=== PATIENT | female | born 1975 | race Caucasian/White ===

== ENCOUNTER 2024-08-22 14:59 | Emergency (ER) | payer OTHER, SELFPAY ==
--- OUTSIDE RECORDS SUMMARY | 2024-08-22 15:01 | XMS_ITS | Clinical Summary ---
Author Organization [facility] Address [address] [place] [address] Care Team Providers Care Dna Sequencing Associate Name Role Phone Prachi Dunn MD Primary Care Provider [phone] Ethan Ortiz RN Unavailable Elzbieta Nicole RD Unavailable Unavailab le Allergies Active Allergy Reactions Criticality Noted Date Comments Meperidine Other - Describe In Comment Field shaking Medications CPAPIndication s:RAIMUNDO (obstructive sleep apnea) CPAP machine for home use at pressure 5-20 cm H2O, nasal mask x1/3month with nasal cushion x2/mo 1 Each 11 2 Active propranoloL (INDERAL) 10 mg tabletIndicati ons:Anxiety Take 1 Tablet (10 mg) by mouth two times daily. 180 Tablet 4 4 Active eszopiclone (LUNESTA) 2 mg tabletIndicati ons:Insomnia, idiopathic Take 1 Tablet (2 mg) by mouth at bedtime. 30 Tablet 2 4 Active buPROPion (WELLBUTRIN SR) 200 mg sustained-rele ase tabletIndicati ons:Depression , recurrent Take 1 Tablet (200 mg) by mouth two times daily. 180 Tablet 4 4 Active ALPRAZolam (XANAX) 0.5 mg tabletIndicati ons:Anxiety TAKE 1-1.5 TABLETS (0.5-0.75 MG) BY MOUTH AT BEDTIME IF NEEDED FOR ANXIETY. 90 Tablet 5 Active tirzepatide (MOUNJARO) 12.5 mg/0.5 mL penIndications :BMI 33.0-33.9,adul t,RAIMUNDO (obstructive sleep apnea) Inject 12.5 mg subcutaneous once weekly. 6 mL 3 5 Active tamsulosin 0.4 mg capsuleIndicat ions:Nephrolit hiasis Take 1 Capsule (0.4 mg) by mouth once daily after a meal. 30 Capsule 5 Active tamsulosin 0.4 mg capsuleIndicat ions:Nephrolit hiasis Take 1 Capsule (0.4 mg) by mouth once daily after a meal. 30 Capsule 1 5 025 Discontin ued(*Avai lability/ Formulary change/Co st of medicatio n) Active Problems Patient Care Coordination No te Formatting of this note migh t be different from the original. 2021 RD consult order entered 10/12/21. 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 Family history of hereditary nonpolyposis colorectal cancer (HNPCC) 01/21/2019 Major depressive disorder, recurrent episode, un specified 03/08/2007 Chondromalacia of patella 02/17/2006 Generalized anxiety disorder Calculus of kidney Overview (09/22/2005): age 16 Resolved Problems Problem Noted Date Diagnosed Date Resolved Date Back pain 09/27/2012 01/21/2019 Encounters Date Type Department Care Team Description 08/22/2024 Nurse Triage [address] [address] Prachi Dunn MD Back Pain 07/22/2024 Refill [facility] [address] [place] [address] Rush Grant MD Refill Request 07/08/2024 4:10 PM EMERGENCY VEHICLE TECHNICIAN Telemedicine [address] [address] Prachi Dunn MD Medication Management (tirzepatide) 07/08/2024 Travel 07/03/[address] [address] Prachi Dunn MD Refill Request (Alprazolam) 06/19/2024 11:15 AM EMERGENCY VEHICLE TECHNICIAN Office Visit [facility] [address] [place] [address] Rush Grant MD Hospital F/U (Kidney Stone- no active pain currently ) 06/19/2024 Travel 06/18/2024 Telephone [facility] [address] [place] [address] Rush Grant MD Questions from Last 3 Months Immunizations Immunization Administration Dates Next Due COVID-19 vaccine (Pfizer-Bio NTech 30mcg/0.3mL) 12YO+ BIVALENT PF, MDV 03/29/2022 COVID-19 vaccine (Pfizer-Bio NTech 30mcg/0.3mL) PF, MDV 03/22/2021 DTaP 10/19/2006,07/15/1981 Influenza Virus, Unspecified 03/29/2022,02/28/20 14 Influenza, IIV4 03/29/2022,,07/10/2018,2016,04/27/2016,05/13/2015,02/27/2014 Influenza,CCIIV4 PRESERV FREE 02/12/2020 Tdap 05/20/2014,10/19/2006 Family History Medical History Relation Name Comments Heart Disease Father at 39, fi rst [place] at 36 Hypertension Father Obesity Father Hypertension Maternal Grandfather Lung cancer Maternal Grandmother Anxiety disorder Mother Cancer-colon Mother Depression Mother Other Mother endometriosis Obesity Sister Other Sister morbid obesity Uterine cancer Sister nonpolyposis colon cancer genetic mutation Relation Name Status Comments Father Maternal Grandfather Maternal Grandmother Mother Sister Social History Tobacco Use Types Packs/Day Years Used Date Smoking Tobacco: Former Cigarettes 0 06/05/1996 - 06/05/2006 Smokeless Tobacco: Never Tobacco Cessation:Counseling Given: Not Answered Alcohol Use Standard Drinks/Week Comments Not Currently 0 (1 standard drink = 0.6 oz pur e alcohol) social 07/24 PHQ-2 Answer Date Recorded PHQ-2 TOTAL SCORE 0 04/02/2024 Social Connections Answer Date Recorded Do you often feel lonely or isolated from those around you? 0 06/19/2024 Financial Resource Strain Answer Date R ecorded Difficulty of Paying Living Expenses 3 06/19/2024 Difficulty of Paying Living Expenses Not on file 06/19/2024 Food Insecurity Answer Date Recorded Do you worry your food will run out before you are able to buy more? 1 06/19/2024 Transportation Needs Answer Date Record ed Does lack of transportation keep you from medica l appointments? 1 06/19/2024 Does lack of transportation keep you from work, meetings or getting things that you need? 1 06/19/2024 Housing Stability Answer Date Recorded What is your housing situation today? 1 06/19/2024 Utilities Answer Date Recorded Do you have trouble paying f or utilities (for example, heat, electricity, water, phone)? 1 06/19/2024 Comments No Sex and Gender Information Value Date Recorded Sex Assigned at Female 03/25/2021 9:12 PM CDT Legal Sex Female 6:09 AM EMERGENCY VEHICLE TECHNICIAN Gender Identity Female 03/25/2021 9:12 PM CDT Sexual Orientation Straight 03/25/2021 9: 12 PM CDT Occupation Industry Job Start Date Job End Date [employer] Not on file Not on file Not on file Obstetrics History Para Term AB IAB SAB Ectopic Multiple Livin g Live Births 1 Date Outcome GA Total Labor Labor/2nd/3rd Weight Sex Type Anes PTL Le A1 A5 Name Clin Last Filed Vital Signs Vital Sign Reading Time Taken Comments Blood Pressure 128/89 06/19/2024 11:15 AM EMERGENCY VEHICLE TECHNICIAN Pulse 71 06/19/2024 11:15 AM EMERGENCY VEHICLE TECHNICIAN Temperature 37.3 C (99.2 F) 11/23/2020 11:57 AM CDT Respiratory Rate 18 11/23/2020 11:57 AM CDT Oxygen Saturation 99% 06/19/2024 11:15 AM EMERGENCY VEHICLE TECHNICIAN Inhaled Oxygen Concentration - - Weight 90.3 kg (199 lb 1.6 oz) 06/19/2024 11:15 AM EMERGENCY VEHICLE TECHNICIAN Height 165.1 cm (5' 5) 04/02/2024 4:27 PM CDT Body Mass Index 33.13 04/02/2024 4:27 PM CDT Plan of Treatment Health Maintenance Due Date Last Done Comments Hepatitis C screening for age 18-79 12/07/1993 COVID-19 vaccine series ( season) 2024 03/29/2022, 03/22/2021, 09/17/2020, Additional history exists Influenza Vaccine (#1) 2024 2, 03/29/2022, 03/22/2021, Additional history exists Tetanus booster 05/20/2024 05/20/2014, 10/19/2006 Colonoscopy through age 75 06/16/2024 06/16/2022, BMI (ht and wt on same day) for age 18+ 04/02/2025 04/02/2024, 02/10/2022, 12/29/2021, Additional history exists Depression screening for age 12+ 04/02/2025 04/02/2024, 03/03/2024, 12/27/2022, Additional history exists Lipids for age 45-75 09/29/2026 09/29/2021, 07/10/2018, 10/19/2006 Pap test for age 21-65 05/10/2027 2 (Verified in Care Everywhere or Patient Record), 01/07/2017 (Completed outside of [facility]), 12/03/2012 (Completed outside of [facility]), Additional history exists HIV for age 15-65 Completed 01/02/2009, 10/19/2006 Tdap Completed 05/20/2014, 10/19/2006 Pneumococcal series for age 6-49 Aged Out No longer eligible based on patient's age to complete this topic Procedures Procedure Name Priority Date/Time Associated Diagnosis Comments SCAN-COLONOSCOPY 06/16/2022 11:0 0 AM EMERGENCY VEHICLE TECHNICIAN LIPID PANEL W REFLEX MEASURED LDL Routine 09/29/2021 8:32 AM CDT Obesity, Class II, BMI 35-39.9 RAPID HIV SCREEN Routine 01/02/2009 2:37 PM CDT Hx-Expos Hzrd Body Fluid HOME THEATER INSTALLER THIN PREP PAP SCREEN IMAGED Routine 01/02/2009 2:37 PM CDT Screening for Malignant Neoplasm of the Cervix from Last 3 Months or Most Recently Relevant to Health Maintenance Results * SCAN-COLONOSCOPY (06/16/2022 11:00 AM EMERGENCY VEHICLE TECHNICIAN) Narrative Procedure Note Jessee Stanley MD - 06/16/2022 9:14 AM CST [facility] [address] [place] [address], [address], [place] [address] Patient Name: Madhavi Jackson Gender: Female Exam Date: 06/16/2022 Visit Number: [id number] Age: 46 Years Date of : 1975 Attending MD: Jessee Stanley MD Medical Record#: [id number] Procedure: Colonoscopy Indications: Family history of colon cancer in patient's multiplerelatives. Age diagnosed: 50-59. Referring MD: Prachi Dunn MD Primary MD: Prachi Dnun MD Medications: Admitting Medications: 0.9% Normal Saline at [facility] Intra Procedure Medications: Patient received monitored anesthesia care. Complications: No immediate complications Procedure: An examination of the heart and lungs was performed and found to be withinacceptable limits. . The patient was therefore deemed a reasonablecandidate for endoscopy and sedation. The risks and benefits of the procedure were explained to the patient.After obtaining informed consent, the patient received monitoredanesthesia care and I passed the scope without difficulty via the rectum to the cecum. The appendiceal orificeand ic valve were identified. The scope was retroflexed during theexamination The quality of the prep was good (Vinh/Gat Split). This was a complete examination throughout the entire colon. Findings: Polyp location: cecum. Quantity: 1. Size: 3 mm. Polyp shape: sessile. Maneuver: polypectomy was performed with a cold biopsy forceps. Removal: complete. Retrieval: complete. Bleeding: none. Impression: Benign colon polyp Preliminary Plan: Repeat colonoscopy in 2 years Pathology Results: A: COLON, CECUM, POLYP: 1. Tubular adenoma 2. Negative for high grade dysplasia 3. Per the colonoscopy report: a. Polyp size: 3 mm b. Resection: Complete c. Retrieval: Complete MICROSCOPIC A: Performed Electronically signed by: Juan Argueta MD Interpreted at [facility], [address] [place] [address] Orders Instruction(s)/Education: Instruction/Education Timeframe Assessment Colon Cancer Prevention K63.5 Colon Polyps K63.5 Final Plan: Repeat colonoscopy in 2 years. We will attempt to contact you at appropriate intervals via U.S. mail. Wemay not be able to find you or contact you at that time, therefore youshould know that the responsibility for following our recommendation restswith you. If you don't hear from us at the time your procedure is due,please contact our office to schedule an appointment. If your contactinformation should change, please contact our office so that we can updateyour record. _Electronically signed by: Jessee Stanley MD 06/16/2022 cc: Prachi Dunn MD cc: Prachi Dunn MD us Jessee Stanley MD OTHER Final Re sult * (ABNORMAL) LIPID PANEL W REFLEX MEASURED LDL (09/29/2021 8:32 AM CDT) CHOLESTEROL,TOTAL 285(H) 100 - 199 mg/dL 09/29/2021 4:31 PM CDT [facility] TRIGLYCERIDES 116 <150 mg/dL 09/29/2021 4:31 PM CDT [facility] HDL CHOLESTEROL 76 >40 mg/dL 4:31 PM CDT [facility] NON-HDL CHOLESTEROL 209(H) <145 mg/dl 09/29/2021 4:31 PM CDT [facility] CHOL/HDL RATIO 3.75 <4.50 09/29/2021 4:31 PM CDT [facility] LDL CHOLESTEROL 186(H) <=130 mg/dL 09/29/2021 4:31 PM CDT [facility] VLDL CHOLESTEROL 23 <=30 mg/dL 09/29/2021 4:31 PM CDT [facility] PROVIDER ORDERED STATUS RANDOM 09/29/2021 4:31 PM CDT [facility] Blood BLOOD SPECIMEN / Unknown Venipuncture / Unknown 09/29/2021 8:32 AM CDT 09/29/2021 8:32 AM CDT Yamile Saez NP CHEMISTRY Final Result [facility] [address] [place] [address], [place] * HOME THEATER INSTALLER THIN PREP PAP SCREEN IMAGED (01/02/2009 2:37 PM CDT) CYTOLOGY CYTOPATHOLOGY REPORT [facility] Status: Final Status [id number] CLINICAL INFORMATION Last Date of LMP :12/24/2008 Last Pap Date :12/2007 Last Pap Result :NIL ABN [place]/Bx Past 5 YRS :None Hormone Usage :BCP/OCP/Patch/Rin g Menstrual Status :Regular Periods [place]/Bx done today :No Additional :None given Information HPV Request :HPV if ASCUS SPECIMEN SOURCE :Cervical/vaginal ThinPrep Vial, screening SPECIMEN ADEQUACY :Satisfactory for evaluation Endocervical component present. INTERPRETATION/RES ULT Negative for intraepithelial lesion or malignancy (NIL) Cytology 1st Screener :had Cytology 2nd Screener :wst Signed by :wst This specimen was screened by the FDA approved ThinPrep Imaging System and manually reviewed. NOTE: The Pap test is a screening technique, not a diagnostic procedure. It is used primarily to screen for squamous cancers and precursor lesions. Published studies have shown that it is subject to both false negative and false positive results. The pap test should not be used as the sole means to diagnose or exclude pre-malignant and malignant lesions. COLLECTED:01/02/09 ACCESSIONED: 01/05/09 SIGNED: 01/13/09 [facility] PAP [place] CODE NIL [facility] Cervical/Vaginal (Cervical/Vagina l) 01/02/2009 2:37 PM CDT 01/02/2009 2:26 PM CDT us Esperanza Olvera MD PATHOLOGY/CYTOLOGY Final Result [facility] [place]NAL ZIP [id number] [address] * RAPID HIV SCREEN (01/02/2009 2:37 PM CDT) RAPID HIV SCREEN Non-reacti ve [facility] Blood specimen (specimen) BLOOD SPECIMEN / Unknown 01/02/2009 2:37 PM CDT 01/02/2009 2:26 PM CDT us Esperanza Olvera MD CHEMISTRY Final Result Performing Organization Address City/[facility]/ZIP Co de Phone Number [facility] [address] [facility] [address], [address] [place] [address] from Last 3 Months or Most Recently Relevant to Health Maintenance Insurance [facility] SHARED [facility] Care Teams Dna Sequencing Associate Relationship Specialty Start Date End Date Prachi Dunn MD [address] [address] PCP - General Internal Medicine 05/13/15 Ethan Ortiz, RN [address] [place], [place] [address] Registered Nurse Registered Nurse 09/28/[address] [facility] [place] [address] Registered Dietitian Wire Roller 09/28/21
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
--- OUTSIDE RECORDS SUMMARY | 2024-08-22 15:01 | XMS_ITS | Clinical Summary ---
Author Organization [facility] Address [address] [place] [address] Care Team Providers Care Leadership Coach Name Role Phone Prachi Dunn MD Primary Care Provider [phone] Allergies Active Allergy Reactions Criticality Noted Date Comments Meperidine 04/05/2021 shaking Medications buPROPion (WELLBUTRIN XL) 150 MG 24 hr tablet Take 300 mg by mouth every morning (150MG X 2 = 300MG) Active ALPRAZolam (XANAX) 0.5 MG tablet Take 0.25-0.5 mg by mouth 3 times daily as needed for anxiety Active traZODone (DESYREL) 50 MG tablet Take 100 mg by mouth At Bedtime (50MG X 2 = 100MG) Active gabapentin (NEURONTIN) 300 MG capsuleIndicati ons:S/P mastectomy, bilateral Take 1 capsule (300 mg) by mouth 3 times daily 90 capsule 04/15/2021 Active Active Problems Problem Noted Date Diagnosed Date Ductal carcinoma in situ (DCIS) of right breast 04/05/2021 08/23/2014 delivery, without m ention of indication, delivered, with or without mention of antepartum condition 08/23/2014 Overview (11/17/2020): Replacement Utility updated for latest IMO load Immunizations Name Administration Dates Next Due Flu, Unspecified 02/27/2014 TDAP (Adacel,Boostrix) 05/20/2014 Family History Medical History Relation Comments Diabetes Father Heart Disease Father Cancer Mother Relation Status Comments Father Mother Social History Tobacco Use Types Packs/Day Years Used Date Smoking Tobacco: Former Cigarettes Smokeless Tobacco: Never Alcohol Use Standard Drinks/Week Comments Yes 1 (1 standard drink = 0.6 oz pur e alcohol) occasionally Adolescent Education Answer Date Record ed Getting School Help Needed Not on file 02/24 Comments No Sex and Gender Information Value Date Recorded Sex Assigned at Not on file Legal Sex Female 8:47 AM CDT Gender Identity Female 04/19/2021 3:27 PM [employer] Sexual Orientation Straight 04/19/2021 3: 27 PM [employer] CHECK[employer] Last Filed Vital Signs Vital Sign Reading Time Taken Comments Blood Pressure 101/72 04/06/2021 11:14 AM CDT Pulse 82 04/06/2021 11:14 AM CDT Temperature 36.9 C (98.4 F) 04/06/2021 11:14 AM CDT Respiratory Rate 18 04/06/2021 2:39 PM CDT Oxygen Saturation 96% 04/06/2021 11:14 AM CDT Inhaled Oxygen Concentration - - Weight 95.4 kg (210 lb 5.1 oz) 04/06/2021 3:43 A M CDT Height 165.1 cm (5' 5) 04/06/2021 3:43 AM CDT Body Mass Index 35 04/06/2021 3:43 AM CDT Plan of Treatment Health Maintenance Due Date Last Done Comments ADVANCE CARE PLANNING 1975 ANNUAL REVIEW OF HM ORDERS 1975 CT COLONOGRAPHY 1975 DIABETES SCREENING 1975 FIT 1975 FLEX SIG 1975 sDNA (Cologuard) 1975 YEARLY PREVENTIVE VISIT 12/07/1978 HEPATITIS C SCREENING 12/07/1993 HEPATITIS B IMMUNIZATION (1 of 3 - 19+ 3-dose series) 12/07/1994 PAP 01/03/2012 01/02/2009 LIPID 2015 COVID-19 Vaccine ( - 2023- season) 2024 03/29/2022, 03/22/2021, 09/17/2020, Additional history exists INFLUENZA VACCINE (#1) 2024 2, 03/22/2021, 02/12/2020, Additional history exists DTAP/TDAP/TD IMMUNIZATION (5 - Td or Tdap) 05/20/2024 05/20/2014, 10/19/2006, 10/19/2006, Additional history exists PHQ-2 (once per calendar year) 2024 ZOSTER IMMUNIZATION (1 of 2) 12/07/2025 COLONOSCOPY 06/16/2032 06/16/2022 COLORECTAL CANCER SCREENING 06/16/2032 HIV SCREENING Completed 01/02/2009 MAMMO SCREENING Discontinued 02/24/2021, 02/04, 02/22/2021, Additional history exists HPV IMMUNIZATION Aged Out No longer e ligible based on patient's age to complete this topic MENINGITIS IMMUNIZATION Aged Out No l onger eligible based on patient's age to complete this topic Pneumococcal Vaccine: Pediatrics (0 to 5 Years) and At-Risk Patients (6 to 49 Years) Aged Out No longer eligible based on patient's age to complete this topic Medical Devices Implanted Type Area Car Repair Supervisor Device Identifier Shelf Expiration Date Model / Serial / Lot Tissue Kier Hand Natrelle 133s Smooth 650ml [id number] - [id number] Implanted:Qt y: 1 on 04/05/2021 by Warner Talamantes MD at [facility] Breast Implant/Tis satya Kier Hand Right: Breast [employer] [id number] 09/23/2025 133S-FX-1 4-T / [id number] / Tissue Kier Hand Natrelle 133s Smooth 650ml [id number] - [id number] Implanted:Qt y: 1 on 04/05/2021 by Warner Talamantes MD at [facility] Breast Implant/Tis satya Kier Hand Left: Breast [employer] [id number] 08/16/2025 133S-FX-1 4-T / [id number] / Procedures Procedure Name Priority Date/Time Associated Diagnosis Comments MAMMOGRAM - HIM SCAN 02/24/2021 12:00 AM CDT from Last 3 Months or Most Recently Relevant to Health Maintenance Results * MAMMOGRAM - HIM SCAN (02/24/2021 12:00 AM CDT) Anatomical Region Laterality Modality Other 02/24/2021 us Provider Outside IMG MAMMOGRAPHY ORDERABLES Shelia l Result from Last 3 Months or Most Recently Relevant to Health Maintenance Advance Directives For more information, please contact: [phone] * Full Code (Latest Code Status on File) Date Activated Date Inactivated Comments 04/05/2021 5:34 PM 04/06/2021 6:24 PM All basic an d advanced life-sustaining interventions are performed as appropriate Question Answer Comments Code status determined by: AD/POLST (patient dec ision maker unavailable) Care Teams Leadership Coach Relationship Specialty Start Date End Date Prachi Dunn MD PCP - General Internal Medicine 02/26/21
--- OUTSIDE RECORDS SUMMARY | 2024-08-22 15:01 | XMS_ITS | Encounter Summary ---
Author Organization [facility] Address [address] [place] [address]. [place] [address] Care Team Providers Care Regional Facilities Specialist Name Role Phone Prachi Dunn MD Primary Care Provider Dayanna Quiñones MD Unavailable Catina Vargas GC Unavailable Encounter Details Date Type Department Care Team (Late st Contact Info) Description 05/11/2021 [facility] [address] [place] [address] Catina Vargas GC [address] [place], [place] [id number] Social History Tobacco Use Types Packs/Day Years Used Date Smoking Tobacco: Former Cigarettes Smokeless Tobacco: Never Alcohol Use Standard Drinks/Week Comments Yes 1 (1 standard drink = 0.6 oz pur e alcohol) occasionally Comments No Sex and Gender Information Value Date Recorded Sex Assigned at Not on file Legal Sex Female 8:47 AM CDT Gender Identity Female 04/19/2021 3:27 PM MARINE EQUIPMENT SALES ENGINEER Sexual Orientation Straight 04/19/2021 3: 27 PM MARINE EQUIPMENT SALES ENGINEER COVID-19 Exposure Response Date Recorded In the last month, have you been in contact with someone who was confirmed or suspected to have Coronavirus / COVID-19? No / Unsure 04/20/2021 10:13 AM MARINE EQUIPMENT SALES ENGINEER documented as of this encounter Plan of Treatment Not on file documented as of this encounter Visit Diagnoses Not on filedocumented in this encounter Care Teams Regional Facilities Specialist Relationship Specialty Start Date End Date Prachi Dunn MD PCP - General Internal Medicine 02/26/21 Dayanna Quiñones MD [address] [facility] [address] [place] [address] Assigned Surgical Provider 03/14/21 Catina Vargas GC [address] [id number] Assigned OBGYN Provider 05/16/21 documented as of this encounter
[2024-08-22 15:33] VITALS: BP 124/80; PULSE 96; RESP 18; TEMP 38.2; O2SAT 96; BMI 30.8
[2024-08-22 15:54] LABS: Appearance Urine Clear (Clear); Bilirubin Urine Negative (Negative); Blood Urine 1+ (Negative); Color Urine Yellow (Yellow); Glucose Urine Negative (Negative); Ketones Urine Trace (Negative); Leukocyte Esterase Urine Trace (Negative); Nitrite Urine Positive (Negative); Protein Urine 2+ (Negative); Specific Gravity Urine 1.025 (1.000-1.030); Urobilinogen Urine 0.2 (0.2-1.0)
[2024-08-22 16:13] LABS: WBC Urine >100 (0-5)
[2024-08-22 16:14] LABS: Bacteria Urine Many
[2024-08-22 16:28] LABS: PCR FLU A Negative PCR FLU A (Negative); PCR FLU B Negative PCR FLU B (Negative); PCR RSV Negative PCR RSV (Negative); SARS PCR* Negative SARS-CoV-2 (Negative)
--- NOTE | 2024-08-22 17:18 | ED.FEVER ---
HPI - Fever General Date Seen: 08/22/24 Chief Complaint: Fever Stated Complaint: fever Time Seen by Provider: 08/22/24 17:02 Source: patient Mode of arrival: ambulatory Limitations: no limitations History of Present Illness HPI Narrative: This pleasant 48-year-old female presents for evaluation of a fever and malaise for the last 3-4 days, she has actually been in bed for the last 2 days, with chills and rigors, she had 4 days ago the started which she thought was UTI and took 1 dose of azo, today she took some Tylenol, as her fever was up to 104 at home. She has a little bit of back pain, she has no nausea vomiting is drinking fine. She does have a history UTIs in the past. And feels that she probably has 1 now, she has had no diarrhea, she has had again no vomiting no redness rashes, denies any neck pain associated with this. MD elicited complaint: fever Onset (ago): day(s) (4) Associated symptoms: rigors and myalgias Treatments prior to arrival fever: acetaminophen Related Data Home Medications ?Medication ?Instructions ?Recorded ?Confirmed alprazolam 0.5 mg tablet mg PO 08/18/23 08/18/23 bupropion HCl 200 mg tablet,12 hr 200 mg PO BID 08/18/23 08/22/24 sustained-release Previous Rx's ?Medication ?Instructions ?Recorded cephalexin 500 mg capsule 500 mg PO TID #21 caps 08/22/24 Allergies Allergy/AdvReac Type Severity Reaction Status Date / Time No Known Drug Allergies Allergy Verified 08/22/24 15:40 Review of Systems Status of ROS Reports: 10 or more systems reviewed and unremarkable except as noted in History and below Exam Narrative Exam Narrative: Patient is seen in our triage room because she is very busy, she is alert oriented nontoxic looking talking to me normally her pupils equal round reactive to light there is no scleral icterus redness or TMs are normal oropharynx is normal there is no adenopathy anterior posterior chains there is no meningismus in her neck is supple, skin reveals no petechiae rashes, chest is good air entry bilaterally with easy respirations, there are no crackles or wheezes, heart sounds no clicks murmurs or gallops, her abdomen is soft slightly obese but no guarding no tenderness noted. There is no CVA tenderness she moves all extremities independently well, she has normal hydration status, and is actually drinking a Gatorade in the room. Const Vital Signs, click to edit/add: Vital Signs - 24 hr 08/22/24 15:33 Temperature 100.8 F H Pulse Rate [Right Pulse Oximeter] 96 Respiratory Rate 18 Blood Pressure [Right Upper Arm] 124/80 Pulse Oximetry 96 Oxygen Delivery Method Room Air Documenting provider has reviewed patient's vital signs: yes Course Vital Signs Vital signs: Initial Vital Signs Temperature 100.8 F H 08/22/24 15:33 Temperature Source Temporal Artery Scan 08/22/24 15:33 Pulse Rate 96 08/22/24 15:33 Pulse Rhythm Regular 08/22/24 15:33 Pulse Strength 3+ Normal 08/22/24 15:33 Respiratory Rate 18 08/22/24 15:33 Blood Pressure 124/80 08/22/24 15:33 Blood Pressure Mean 94 08/22/24 15:33 Pulse Oximetry 96 08/22/24 15:33 Oxygen Delivery Method Room Air 08/22/24 15:33 Vital Signs Temperature 100.8 F H 08/22/24 15:33 Pulse Rate 96 08/22/24 15:33 Respiratory Rate 18 08/22/24 15:33 Blood Pressure 124/80 08/22/24 15:33 Pulse Oximetry 96 08/22/24 15:33 Oxygen Delivery Method Room Air 08/22/24 15:33 Temperature 100.8 F H 08/22/24 15:33 Pulse Rate 96 08/22/24 15:33 Respiratory Rate 18 08/22/24 15:33 Blood Pressure 124/80 08/22/24 15:33 Pulse Oximetry 96 08/22/24 15:33 Oxygen Delivery Method Room Air 08/22/24 15:33 MDM - Fever MDM Narrative Medical decision making narrative: Life-threatening differential diagnosis is include meningitis, encephalitis, pneumonia, intra-abdominal infection, bacteremia, other differential diagnosis include but are not limited to viral upper respiratory tract infection, strep, urinary tract infection, skin infection, osteomyelitis, influenza, fungal infections, diskitis, epidural abscess, or fever of unknown origin. I discussed with her that her urine is grossly positive with lots of white cells and nitrite positive this is a UTI maybe even be an early pyelonephritis, I recommend given that she is going on a trip early next week to the [facility] that we at least start with the IM dose of antibiotic and went over this, we will give her a dose of Rocephin, followed by Keflex 3 times a day for the next 7 days, we will call her if the culture is positive and grows something that is resistant. Medical Records Attestation: I reviewed the patient's medical records. Lab Data Attestation: I reviewed the patient's lab results. Labs: Lab Results 08/22/24 Range/Units 15:44 Urine Color Yellow (Yellow) Urine Appearance Clear (Clear) Urine pH 6.0 (5.0-8.5) Ur Specific [place] 1.025 (1.000-1.030) Urine Protein 2+ A (Negative) Urine Glucose (UA) Negative (Negative) Urine Ketones Trace A (Negative) Urine Blood 1+ A (Negative) Urine Nitrite Positive A (Negative) Urine Bilirubin Negative (Negative) Urine Urobilinogen 0.2 (0.2-1.0) Ur Leukocyte Esterase Trace A (Negative) Urine RBC 5-10 A (0-2) Urine WBC >100 A (0-5) Ur Squamous Epith Cells None (None-Few) Urine Bacteria Many A (None) SARS-CoV-2 (PCR) Negative SARS-CoV-2 (Negative) Influenza Type A (PCR) Negative PCR FLU A (Negative) Influenza Type B (PCR) Negative PCR FLU B (Negative) RSV (PCR) Negative PCR RSV (Negative) Discharge Plan Discharge Clinical Impression: UTI (urinary tract infection) Patient Disposition: Home w/ Parent or Adult Condition: Stable Instructions: Urinary Tract Infection in Women (DC), Kidney Infection (ED) Additional Instructions: Home rest, take your medications as directed, given this to you for the next 7 days, increasing nausea vomiting abdominal pain, back pain, should prompt reassessment, we will know the culture results before you go to the [facility], and we will call you if it is the wrong antibiotic. Tylenol and/or ibuprofen for the discomfort for the 1st 48 hours would be helpful. Activity Level: Light activity Prescriptions: New cephalexin 500 mg capsule 500 mg PO TID Qty: 21 0RF No Action alprazolam 0.5 mg tablet PO bupropion HCl 200 mg tablet sustained-release 12 hr 200 mg PO BID Follow Up/Referrals: Provider,Not a Local [Primary Care Provider] - Stand Alone Forms: [facility] Info Instructions
--- OUTSIDE RECORDS SUMMARY | 2024-08-22 17:23 | XMS_ITS | Clinical Summary ---
Author Organization [facility] Address [address] [place] [address] Support Name Relationship Address Phone Jovani Jackson Emergency Contact Unknown [phone] Pt 03/17 Declined Emergency Contact Unknown Unava ilable Care Team Providers Care Distribution A Class Lineman Name Role Phone Md ZULAY Kaufman Primary Care Provider [phone] Source Comments You are receiving this document as you are listed as the primary care provider,follow-up provider, or the patient has been referred to you for consultation.This is in compliance with the Medicare and[facility] EHR Incentive Program,which states Providers who transition their patient to another setting of careor provider of care or refers their patient to another provider of care shouldprovide summary care record for each transition of care or referral. [facility] Allergies No known active allergies Medications ALPRAZolam [...] tablet TK 1 T PO HS PRF CONTACT ASSEMBLER 1 12/28/2016 Active traZODone (DESYREL) 50 MG [...] this topic Insurance BCBS OUT OF STATE [facility] [place] Care Teams Distribution A Class Lineman Relationship Specialty Start Date End Date Md Shae, [place] [address] PCP - General 09/05/10
--- OUTSIDE RECORDS SUMMARY | 2024-08-22 17:23 | XMS_ITS | Clinical Summary ---
Author Organization [employer] [facility] Address [address] [place] [address] Care Team Providers Care Can Machine Operator Name Role Phone Prachi Dunn MD Primary Care Provider [phone] Ethan Ortiz RN Unavailable Elzbieta Nicole RD [...] Department Care Team Description 08/22/2024 Nurse Triage [address] [address] Prachi Dunn MD Back Pain 07/22/2024 Refill [facility] [address] [place] [address] Rush Grant MD Refill Request 07/08/2024 4:10 PM SHOPPER'S AIDE Telemedicine [address] [address] Prachi Dunn MD Medication Management (tirzepatide) 07/08/2024 Travel 07/03/[address] [address] Prachi Dunn MD Refill Request (Alprazolam) 06/19/2024 11:15 AM SHOPPER'S AIDE Office Visit [facility] [address] [place] [address] Rush Grant MD Hospital F/U (Kidney Stone- no active pain currently ) 06/19/2024 Travel 06/18/2024 Telephone [facility] [address] [place] [address] Rush Grant MD Questions from Last 3 Months Immunizations Immunization Administration Dates Next Due COVID-19 vaccine (Pfizer-Bio NTech 30mcg/0.3mL) 12YO+ BIVALENT PF, MDV 03/29/2022 COVID-19 vaccine (Pfizer-Bio NTech 30mcg/0.3mL) PF, MDV 03/22/2021 DTaP 10/19/2006,07/15/1981 Influenza Virus, Unspecified 03/29/2022,02/28/20 14 Influenza, IIV4 03/29/2022,,07/10/2018,2016,04/27/2016,05/13/2015,02/27/2014 Influenza,CCIIV4 PRESERV FREE 02/12/2020 Tdap 05/20/2014,10/19/2006 Family History Medical History Relation Name Comments Heart Disease Father at 39, fi rst [place] at 36 Hypertension Father Obesity Father Hypertension [...] PM CDT Legal Sex Female 6:09 AM SHOPPER'S AIDE Gender Identity Female 03/25/2021 9:12 PM CDT [...] Comments Blood Pressure 128/89 06/19/2024 11:15 AM SHOPPER'S AIDE Pulse 71 06/19/2024 11:15 AM SHOPPER'S AIDE Temperature 37.3 C (99.2 F) 11/23/2020 11:57 AM CDT Respiratory Rate 18 11/23/2020 11:57 AM CDT Oxygen Saturation 99% 06/19/2024 11:15 AM SHOPPER'S AIDE Inhaled Oxygen Concentration - - Weight 90.3 kg (199 lb 1.6 oz) 06/19/2024 11:15 AM SHOPPER'S AIDE Height 165.1 cm (5' 5) 04/02/2024 4:27 [...] or Patient Record), 01/07/2017 (Completed outside of [facility]), 12/03/2012 (Completed outside of [facility]), Additional history exists HIV for age 15-65 Completed 01/02/2009, 10/19/2006 Tdap Completed 05/20/2014, 10/19/2006 Pneumococcal series for age 6-49 Aged Out No longer eligible based on patient's age to complete this topic Procedures Procedure Name Priority Date/Time Associated Diagnosis Comments SCAN-COLONOSCOPY 06/16/2022 11:0 0 AM SHOPPER'S AIDE LIPID PANEL W REFLEX MEASURED LDL Routine 09/29/2021 8:32 AM CDT Obesity, Class II, BMI 35-39.9 RAPID HIV SCREEN Routine 01/02/2009 2:37 PM CDT Hx-Expos Hzrd Body Fluid ASSOCIATE PROFESSOR OF FORESTRY THIN PREP PAP SCREEN IMAGED Routine 01/02/2009 2:37 PM CDT Screening for Malignant Neoplasm of the Cervix from Last 3 Months or Most Recently Relevant to Health Maintenance Results * SCAN-COLONOSCOPY (06/16/2022 11:00 AM SHOPPER'S AIDE) Narrative Procedure Note Jessee Stanley MD - 06/16/2022 9:14 AM CST [facility] [address] [place] [address], [address], [place] [address] Patient Name: Madhavi Jackson Gender: Female Exam Date: 06/16/2022 Visit Number: [id number] Age: 46 Years Date of : 1975 Attending MD: Jessee Stanley MD Medical Record#: [id number] Procedure: Colonoscopy Indications: Family history of colon cancer in patient's multiplerelatives. Age diagnosed: 50-59. Referring MD: Prachi Dunn MD Primary MD: Prachi Dunn MD Medications: Admitting Medications: 0.9% Normal Saline at [facility] Intra Procedure Medications: Patient received monitored anesthesia [...] signed by: Juan Argueta MD Interpreted at [facility], [address] [place] [address] Orders Instruction(s)/Education: Instruction/Education Timeframe Assessment Colon Cancer [...] - 199 mg/dL 09/29/2021 4:31 PM CDT [facility] TRIGLYCERIDES 116 <150 mg/dL 09/29/2021 4:31 PM CDT [facility] HDL CHOLESTEROL 76 >40 mg/dL 4:31 PM CDT [facility] NON-HDL CHOLESTEROL 209(H) <145 mg/dl 09/29/2021 4:31 PM CDT [facility] CHOL/HDL RATIO 3.75 <4.50 09/29/2021 4:31 PM CDT [facility] LDL CHOLESTEROL 186(H) <=130 mg/dL 09/29/2021 4:31 PM CDT [facility] VLDL CHOLESTEROL 23 <=30 mg/dL 09/29/2021 4:31 PM CDT [facility] PROVIDER ORDERED STATUS RANDOM 09/29/2021 4:31 PM CDT [facility] Blood BLOOD SPECIMEN / Unknown Venipuncture / Unknown 09/29/2021 8:32 AM CDT 09/29/2021 8:32 AM CDT Yamile Saez NP CHEMISTRY Final Result [facility] [address] [place] [address], [place] * ASSOCIATE PROFESSOR OF FORESTRY THIN PREP PAP SCREEN IMAGED (01/02/2009 2:37 PM CDT) CYTOLOGY CYTOPATHOLOGY REPORT [facility] Status: Final Status [id number] CLINICAL INFORMATION Last Date of LMP :12/24/2008 Last Pap Date :12/2007 Last Pap Result :NIL ABN [place]/Bx Past 5 YRS :None Hormone Usage :BCP/OCP/Patch/Rin g Menstrual Status :Regular Periods [place]/Bx done today :No Additional :None given Information [...] malignant lesions. COLLECTED:01/02/09 ACCESSIONED: 01/05/09 SIGNED: 01/13/09 [facility] P[facility] [place] CODE NIL [facility] Cervical/Vaginal (Cervical/Vagina l) 01/02/2009 2:37 PM CDT 01/02/2009 2:26 PM CDT us Esperanza Olvera MD PATHOLOGY/CYTOLOGY Final Result [facility] [place]NAL ZIP [address] [address] * RAPID HIV SCREEN (01/02/2009 2:37 PM CDT) RAPID HIV SCREEN Non-reacti ve [facility] Blood specimen (specimen) BLOOD SPECIMEN / Unknown 01/02/2009 2:37 PM CDT 01/02/2009 2:26 PM CDT us Esperanza Olvera MD CHEMISTRY Final Result Performing Organization Address City/[facility]/ZIP Co de Phone Number [facility] [address], [address] [place] [address] from Last 3 Months or Most Recently Relevant to Health Maintenance Insurance [facility] Care Teams Can Machine Operator Relationship Specialty Start Date End Date Prachi Dunn MD [address] [address] PCP - General Internal Medicine 05/13/15 Ethan Ortiz, RN [address] [place], [place] [address] Registered Nurse Registered Nurse 09/28/[address] [facility] [place] [address] Registered Dietitian Misdraw Hand 09/28/21
--- OUTSIDE RECORDS SUMMARY | 2024-08-22 17:23 | XMS_ITS | Encounter Summary ---
Author Organization [facility] Address [address] [place] [address]. [place] [address] Care Team Providers Care Extrusion Engineer Name Role Phone Prachi Dunn MD Primary Care Provider Dayanna Quiñones MD Unavailable Catina Vargas GC Unavailable Encounter Details Date Type Department Care Team (Late st Contact Info) Description 05/11/2021 [facility] [place] [place] [facility] [address] [place] [address] Catina Vargas GC [address] [place], [place] [id number] Social History Tobacco Use Types Packs/Day Years Used Date Smoking Tobacco: Former Cigarettes Smokeless Tobacco: Never Alcohol Use Standard Drinks/Week Comments Yes 1 (1 standard drink = 0.6 oz pur e alcohol) occasionally Comments No Sex and Gender Information Value Date Recorded Sex Assigned at Not on file Legal Sex Female 8:47 AM CDT Gender Identity Female 04/19/2021 3:27 PM HAND CANDLE DIPPER Sexual Orientation Straight 04/19/2021 3: 27 PM HAND CANDLE DIPPER COVID-19 Exposure Response Date Recorded In the last month, have you been in contact with someone who was confirmed or suspected to have Coronavirus / COVID-19? No / Unsure 04/20/2021 10:13 AM HAND CANDLE DIPPER documented as of this encounter Plan of Treatment Not on file documented as of this encounter Visit Diagnoses Not on filedocumented in this encounter Care Teams Extrusion Engineer Relationship Specialty Start Date End Date Prachi Dunn MD PCP - General Internal Medicine 02/26/21 Dayanna Quiñones MD [address] [facility] [address] [place] [address] Assigned Surgical Provider 03/14/21 Catina Vargas GC [address] [id number] Assigned OBGYN Provider 05/16/21 documented as of this encounter
--- OUTSIDE RECORDS SUMMARY | 2024-08-22 17:24 | XMS_ITS | Clinical Summary ---
Author Organization [facility] Address [address] [place] [address] Care Team Providers Care Moving Picture Producer Name Role Phone Prachi Dunn MD Primary Care Provider [phone] Allergies Active Allergy Reactions Criticality Noted Date [...] CDT Gender Identity Female 04/19/2021 3:27 PM MANAGER BABY Sexual Orientation Straight 04/19/2021 3: 27 PM MANAGER BABY Last Filed Vital Signs Vital Sign Reading [...] this topic Medical Devices Implanted Type Area Operations Officer Trust Department Device Identifier Shelf Expiration Date Model / Serial / Lot Tissue Veneer Patcher Natrelle 133s Smooth 650ml [id number] - [id number] Implanted:Qt y: 1 on 04/05/2021 by Warner Talamantes MD at [facility] Breast Implant/Tis satya Veneer Patcher Right: Breast [employer] [id number] 09/23/2025 133S-FX-1 4-T / [id number] / Tissue Veneer Patcher Natrelle 133s Smooth 650ml [id number] - [id number] Implanted:Qt y: 1 on 04/05/2021 by Warner Talamantes MD at [facility] Breast Implant/Tis satya Veneer Patcher Left: Breast [employer] [id number] 08/16/2025 133S-FX-1 4-T / [id number] / Procedures Procedure Name Priority Date/Time Associated [...] Advance Directives For more information, please contact: [phone] * Full Code (Latest Code Status on File) Date Activated Date Inactivated Comments 04/05/2021 5:34 PM 04/06/2021 6:24 PM All basic an d advanced life-sustaining interventions are performed as appropriate Question Answer Comments Code status determined by: AD/POLST (patient dec ision maker unavailable) Care Teams Moving Picture Producer Relationship Specialty Start Date End Date Prachi Dunn MD PCP - General Internal Medicine 02/26/21
[2024-08-22 17:30] VITALS: BP 121/78; PULSE 81; RESP 16; TEMP 36.9; O2SAT 97
[2024-08-22] MEDS: LIDOCAINE 1% 5 ml (pf) 5 ML VIAL 2.1 ML IM (17:36)
[2024-08-22] MEDS: cefTRIAXone 1 GM VIAL IM (17:36)
== END 2024-08-22 17:42 | disposition home or self-care (01) ==
LOC: ED 17:21
PROVIDERS: Emergency Provider Family Medicine
DX: N39.0 Urinary tract infection, site not specified (principal)
CPT/HCPCS: 81001; 87086; 87631; 96372; 99283; 99284; J0696

== ENCOUNTER 2024-08-24 09:17 | Emergency (ER) | payer OTHER, SELFPAY ==
[2024-08-24 09:19] VITALS: BP 118/83; PULSE 82; RESP 16; TEMP 36.6; O2SAT 98; BMI 30.8
--- OUTSIDE RECORDS SUMMARY | 2024-08-24 09:19 | XMS_ITS | Clinical Summary ---
Author Organization [facility] Address [address] [place] [address] Support Name Relationship Address Phone Jovani Jackson Emergency Contact Unknown [phone] Pt 03/17 Declined Emergency Contact Unknown Unava ilable Care Team Providers Care Plastic Finisher Name Role Phone Md ZULAY Kaufman Primary Care Provider [phone] Source Comments You are receiving this document as you are listed as the primary care provider,follow-up provider, or the patient has been referred to you for consultation.This is in compliance with the Medicare and[facility] EHR Incentive Program,which states Providers who transition their patient to another setting of careor provider of care or refers their patient to another provider of care shouldprovide summary care record for each transition of care or referral. [facility] Allergies No known active allergies Medications ALPRAZolam [...] tablet TK 1 T PO HS PRF SHOP MANAGER 1 12/28/2016 Active traZODone (DESYREL) 50 MG [...] this topic Insurance BCBS OUT OF STATE [facility] [place] Care Teams Plastic Finisher Relationship Specialty Start Date End Date Md Shae, [place] [address] PCP - General 09/05/10
--- OUTSIDE RECORDS SUMMARY | 2024-08-24 09:19 | XMS_ITS | Clinical Summary ---
Author Organization [facility] Address [address] [place] [address] Care Team Providers Care Fisheries Specialist Name Role Phone Prachi Dunn MD Primary Care Provider [phone] Ethan Ortiz RN Unavailable Elzbieta Nicole RD Unavailable Unavailab le Allergies Active Allergy Reactions Criticality Noted Date Comments Meperidine Other - Describe In Comment Field shaking Medications CPAPIndications :RAIMUNDO (obstructive sleep apnea) CPAP machine for home use at pressure 5-20 cm H2O, nasal mask x1/3month with nasal cushion x2/mo 1 Each 11 2 Active propranoloL (INDERAL) 10 mg tabletIndicatio ns:Anxiety Take 1 Tablet (10 mg) by mouth two times daily. 180 Tablet 4 4 Active eszopiclone (LUNESTA) 2 mg tabletIndicatio ns:Insomnia, idiopathic Take 1 Tablet (2 mg) by mouth at bedtime. 30 Tablet 2 4 Active buPROPion (WELLBUTRIN SR) 200 mg sustained-relea se tabletIndicatio ns:Depression, recurrent Take 1 Tablet (200 mg) by mouth two times daily. 180 Tablet 4 4 Active ALPRAZolam (XANAX) 0.5 mg tabletIndicatio ns:Anxiety TAKE 1-1.5 TABLETS (0.5-0.75 MG) BY MOUTH AT BEDTIME IF NEEDED FOR ANXIETY. 90 Tablet 5 Active tirzepatide (MOUNJARO) 12.5 mg/0.5 mL penIndications: BMI 33.0-33.9,adult ,RAIMUNDO (obstructive sleep apnea) Inject 12.5 mg subcutaneous once weekly. 6 mL 3 5 Active tamsulosin 0.4 mg capsuleIndicati ons:Nephrolithi asis Take 1 Capsule (0.4 mg) by mouth once daily after a meal. 30 Capsule 5 Active Active Problems Patient Care Coordination No te [...] Department Care Team Description 08/22/2024 Nurse Triage [address] [address] Prachi Dunn MD Back Pain 07/22/2024 Refill [facility] [address] [place] [address] Rush Grant MD Refill Request 07/08/2024 4:10 PM FLOOR COVERING PRINTER ASSISTANT Telemedicine [address] [address] Prachi Dunn MD Medication Management (tirzepatide) 07/08/2024 Travel 07/03/[address] [address] Prachi Dunn MD Refill Request (Alprazolam) 06/19/2024 11:15 AM FLOOR COVERING PRINTER ASSISTANT Office Visit [facility] [address] [place] [address] Rush Grant MD Hospital F/U (Kidney Stone- no active pain currently ) 06/19/2024 Travel 06/18/2024 Telephone [facility] [address] [place] [address] Rush Grant MD Questions from Last 3 Months Immunizations Immunization Administration Dates Next Due COVID-19 vaccine (Pfizer-Bio NTech 30mcg/0.3mL) 12YO+ BIVALENT PF, MDV 03/29/2022 COVID-19 vaccine (Pfizer-Bio NTech 30mcg/0.3mL) PF, MDV 03/22/2021 DTaP 10/19/2006,07/15/1981 Influenza Virus, Unspecified 03/29/2022,02/28/20 14 Influenza, IIV4 03/29/2022,,07/10/2018,2016,04/27/2016,05/13/2015,02/27/2014 Influenza,CCIIV4 PRESERV FREE 02/12/2020 Tdap 05/20/2014,10/19/2006 Family History Medical History Relation Name Comments Heart Disease Father at 39, fi rst [place] at 36 Hypertension Father Obesity Father Hypertension [...] PM CDT Legal Sex Female 6:09 AM FLOOR COVERING PRINTER ASSISTANT Gender Identity Female 03/25/2021 9:12 PM CDT [...] Comments Blood Pressure 128/89 06/19/2024 11:15 AM FLOOR COVERING PRINTER ASSISTANT Pulse 71 06/19/2024 11:15 AM FLOOR COVERING PRINTER ASSISTANT Temperature 37.3 C (99.2 F) 11/23/2020 11:57 AM CDT Respiratory Rate 18 11/23/2020 11:57 AM CDT Oxygen Saturation 99% 06/19/2024 11:15 AM FLOOR COVERING PRINTER ASSISTANT Inhaled Oxygen Concentration - - Weight 90.3 kg (199 lb 1.6 oz) 06/19/2024 11:15 AM FLOOR COVERING PRINTER ASSISTANT Height 165.1 cm (5' 5) 04/02/2024 4:27 PM CDT Body Mass Index 33.13 04/02/2024 4:27 PM CDT Plan of Treatment Health Maintenance Due Date Last Done Comments Hepatitis C screening for age 18-79 12/07/1993 COVID-19 vaccine series ( season) 2024 03/29/2022, 03/22/2021, 09/17/2020, Additional history exists Influenza Vaccine (#1) 2024 , 03/29/2022, 03/22/2021, Additional history exists Tetanus booster [...] or Patient Record), 01/07/2017 (Completed outside of [facility]), 12/03/2012 ([facility] outside of [facility]), Additional history exists HIV for age 15-65 Completed 01/02/2009, 10/19/2006 Tdap Completed 05/20/2014, 10/19/2006 Pneumococcal series for age 6-49 Aged Out No longer eligible based on patient's age to complete this topic Procedures Procedure Name Priority Date/Time Associated Diagnosis Comments SCAN-COLONOSCOPY 06/16/2022 11:0 0 AM FLOOR COVERING PRINTER ASSISTANT LIPID PANEL W REFLEX MEASURED LDL Routine 09/29/2021 8:32 AM CDT Obesity, Class II, BMI 35-39.9 RAPID HIV SCREEN Routine 01/02/2009 2:37 PM CDT Hx-Expos Hzrd Body Fluid CHICKEN CUTTER THIN PREP PAP SCREEN IMAGED Routine 01/02/2009 2:37 PM CDT Screening for Malignant Neoplasm of the Cervix from Last 3 Months or Most Recently Relevant to Health Maintenance Results * SCAN-COLONOSCOPY (06/16/2022 11:00 AM FLOOR COVERING PRINTER ASSISTANT) Narrative Procedure Note Rank, Jessee Beverly MD - 06/16/2022 9:14 AM CST [facility] [address] [place] [address], [address], [place] [address] Patient Name: Madhavi Jackson Gender: Female Exam Date: 06/16/2022 Visit Number: [id number] Age: 46 Years Date of : 1975 Attending MD: Jessee Stanley MD Medical Record#: [id number] Procedure: Colonoscopy Indications: Family history of colon cancer in patient's multiplerelatives. Age diagnosed: 50-59. Referring MD: Prachi Dunn MD Primary MD: Prachi Dunn MD Medications: Admitting Medications: 0.9% Normal Saline at [facility] Intra Procedure Medications: Patient received monitored anesthesia [...] signed by: Juan Argueta MD Interpreted at [facility], [address] [place], [place] [id number] Orders Instruction(s)/Education: Instruction/Education Timeframe Assessment Colon Cancer [...] - 199 mg/dL 09/29/2021 4:31 PM CDT [facility] [employer] [facility] TRIGLYCERIDES 116 <150 mg/dL 09/29/2021 4:31 PM CDT [facility] HDL CHOLESTEROL 76 >40 mg/dL 4:31 PM CDT [facility] NON-HDL CHOLESTEROL 209(H) <145 mg/dl 09/29/2021 4:31 PM CDT [facility] CHOL/HDL RATIO 3.75 <4.50 09/29/2021 4:31 PM CDT [facility] LDL CHOLESTEROL 186(H) <=130 mg/dL 09/29/2021 4:31 PM CDT [facility] VLDL CHOLESTEROL 23 <=30 mg/dL 09/29/2021 4:31 PM CDT [facility] PROVIDER ORDERED STATUS RANDOM 09/29/2021 4:31 PM CDT [facility] Blood BLOOD SPECIMEN / Unknown Venipuncture / Unknown 09/29/2021 8:32 AM CDT 09/29/2021 8:32 AM CDT us Yamile Saez NP CHEMISTRY Final Result [facility] [address] [place] [address], [place] * CHICKEN CUTTER THIN PREP PAP SCREEN IMAGED (01/02/2009 2:37 PM CDT) CYTOLOGY CYTOPATHOLOGY REPORT [facility] Status: Final Status [id number] CLINICAL INFORMATION Last Date of LMP :12/24/2008 Last Pap Date :12/2007 Last Pap Result :NIL ABN Clark/Bx Past 5 YRS :None Hormone Usage :BCP/OCP/Patch/Rin g Menstrual Status :Regular Periods Clark/Bx done today :No Additional :None given Information [...] malignant lesions. COLLECTED:01/02/09 ACCESSIONED: 01/05/09 SIGNED: 01/13/09 [facility] PAP [place] CODE NIL [facility] Cervical/Vaginal (Cervical/Vagina l) 01/02/2009 2:37 PM CDT 01/02/2009 2:26 PM CDT Esperanza Olvera MD PATHOLOGY/CYTOLOGY Final Result [facility] INTERNAL ZIP [address] [address] * RAPID HIV SCREEN (01/02/2009 2:37 PM CDT) RAPID HIV SCREEN Non-reacti ve [facility] Blood specimen (specimen) BLOOD SPECIMEN / Unknown 01/02/2009 2:37 PM CDT 01/02/2009 2:26 PM CDT Esperanza Olvera MD CHEMISTRY Final Result Performing Organization Address City/Special Care [facility]/ZIP Co de Phone Number [facility] [place] [facility] [address] [facility] [address], [address] [place] [address] from Last 3 Months or Most Recently Relevant to Health Maintenance Insurance [facility] [place] [address] Care Teams Fisheries Specialist Relationship Specialty Start Date End Date Prachi Dunn MD [address] [facility] [address] [place] [address] PCP - General Internal Medicine 05/13/15 Ethan Ortiz, RN [address] [place], [place] [address] Registered Nurse Registered Nurse 09/28/[address] [place] [address] Registered Dietitian Dumper 09/28/21
--- OUTSIDE RECORDS SUMMARY | 2024-08-24 09:19 | XMS_ITS | Encounter Summary ---
Author Organization [place] Address [address] [place] [address]. [place] [address] Care Team Providers Care Rehabilitation Counselor Name Role Phone Prachi Dunn MD Primary Care Provider [phone] Dayanna Quiñones MD Unavailable Catina Vargas GC Unavailable Encounter Details Date Type Department Care Team (Late st Contact Info) Description 05/11/2021 [facility] [address] [place] [address] Catina Vargas GC [address] [place] [address] Social History Tobacco Use Types Packs/Day Years Used Date Smoking Tobacco: Former Cigarettes Smokeless Tobacco: Never Alcohol Use Standard Drinks/Week Comments Yes 1 (1 standard drink = 0.6 oz pur e alcohol) occasionally Comments No Sex and Gender Information Value Date Recorded Sex Assigned at Not on file Legal Sex Female 8:47 AM CDT Gender Identity Female 04/19/2021 3:27 PM WORD PROCESSING SPECIALIST Sexual Orientation Straight 04/19/2021 3: 27 PM WORD PROCESSING SPECIALIST COVID-19 Exposure Response Date Recorded In the last month, have you been in contact with someone who was confirmed or suspected to have Coronavirus / COVID-19? No / Unsure 04/20/2021 10:13 AM WORD PROCESSING SPECIALIST documented as of this encounter Plan of Treatment Not on file documented as of this encounter Visit Diagnoses Not on filedocumented in this encounter Care Teams Rehabilitation Counselor Relationship Specialty Start Date End Date Prachi Dunn MD PCP - General Internal Medicine 02/26/21 Dayanna Quiñones MD [address] [facility] [address] [address] Assigned Surgical Provider 03/14/21 Catina Vargas GC [address] [id number] Assigned OBGYN Provider 05/16/21 documented as of this encounter
--- OUTSIDE RECORDS SUMMARY | 2024-08-24 09:20 | XMS_ITS | Clinical Summary ---
Author Organization [place] Address [address] [place] [address] Care Team Providers Care Balcony Worker Name Role Phone Prachi Dunn MD Primary Care Provider [phone] Allergies Active Allergy Reactions Criticality Noted Date [...] CDT Gender Identity Female 04/19/2021 3:27 PM EMERGENCY CREW SUPERVISOR Sexual Orientation Straight 04/19/2021 3: 27 PM EMERGENCY CREW SUPERVISOR Last Filed Vital Signs Vital Sign Reading [...] this topic Medical Devices Implanted Type Area Humanities Department Chair Device Identifier Shelf Expiration Date Model / Serial / Lot Tissue Desk Pen Set Assembler Natrelle 133s Smooth 650ml [id number] - [id number] Implanted:Qt y: 1 on 04/05/2021 by Warner Talamantes MD at [facility] Breast Implant/Tis satya Desk Pen Set Assembler Right: Breast [employer] [id number] 09/23/2025 133S-FX-1 4-T / [id number] / Tissue Desk Pen Set Assembler Natrelle 133s Smooth 650ml [id number] - [id number] Implanted:Qt y: 1 on 04/05/2021 by Warner Talamantes MD at [facility] Breast Implant/Tis satya Desk Pen Set Assembler Left: Breast [employer] [id number] 08/16/2025 133S-FX-1 4-T / [id number] / Procedures Procedure Name Priority Date/Time Associated [...] Advance Directives For more information, please contact: [phone] * Full Code (Latest Code Status on File) Date Activated Date Inactivated Comments 04/05/2021 5:34 PM 04/06/2021 6:24 PM All basic an d advanced life-sustaining interventions are performed as appropriate Question Answer Comments Code status determined by: AD/POLST (patient dec ision maker unavailable) Care Teams Balcony Worker Relationship Specialty Start Date End Date Prachi Dunn MD PCP - General Internal Medicine 02/26/21
--- NOTE | 2024-08-24 09:50 | ED.GENADULT ---
HPI - General Adult General Chief complaint: Urogenital Problems, Female Stated complaint: UTI Time Seen by Provider: 08/24/24 09:25 History of Present Illness HPI narrative: This 48-year-old female was seen a couple days ago because of urinary tract infection. She received Rocephin and a prescription for Keflex to treat urinalysis findings. She states that she is feeling quite a bit better. Culture and sensitivity report returned however showing E coli which is resistant strain of this pathogen. All of the oral medicines listed in the sensitivity report and including Rocephin were resistant to this pathogen. I advised the patient to return for further treatment. She states that she is feeling much better. She arrives here with normal vital signs. Related Data Home Medications ?Medication ?Instructions ?Recorded ?Confirmed alprazolam 0.5 mg tablet mg PO 08/18/23 08/18/23 bupropion HCl 200 mg tablet,12 hr 200 mg PO BID 08/18/23 08/22/24 sustained-release Previous Rx's ?Medication ?Instructions ?Recorded cephalexin 500 mg capsule 500 mg PO TID #21 caps 08/22/24 amoxicillin 875 mg-potassium 1 tab PO BID #20 tabs 08/24/24 clavulanate 125 mg tablet Allergies Allergy/AdvReac Type Severity Reaction Status Date / Time No Known Drug Allergies Allergy Verified 08/22/24 15:40 Review of Systems Status of ROS: Reports: 10 or more systems reviewed and unremarkable except as noted in History and below Narrative: Constitutional: No fevers, no weight gain or loss. Eyes: No discharge. No vision changes. HENT: No congestion, no sore throat, no ear pain. Cardiovascular: No chest pain, no palpitations. Respiratory: No shortness of breath, no wheezes, no cough. Gastrointestinal: No abdominal pain, no vomiting, no diarrhea. Genitourinary: No dysuria, no hematuria. Musculoskeletal: Normal range of motion. Skin: No rashes, no pruritis. Neurological: No dizziness, weakness, sensory change, speech change. Endo/Heme/Allergies: No bruising or bleeding. No polydipsia. Pysch: no suicidality, no anxiety, no insomnia. All other systems reviewed and are negative. Exam Narrative: Exam Narrative: Constitutional: Well-developed, well-nourished, no acute distress. HEENT: Normocephalic, atraumatic. Neck: Normal range of motion. Nontender. Supple. Heart: Regular. No murmurs. Normal rate. Intact distal pulses. Lungs: Clear to auscultation. No chest discomfort. No wheezes, rhonchi, or rales. Abdomen: Normal bowel sounds. Nontender. No rebound tenderness. Genitalia: Deferred. Back: No midline tenderness. Normal range of motion. Extremities: Normal range of motion. No injury. Skin: Intact. No rash. Warm. No erythema or pallor. Neurologic: No altered sensation. No weakness. Alert and oriented. Psychiatric: No suicidality. No anxiety or depression. No insomnia. Nursing notes and vitals signs are reviewed. Const: Vital Signs, click to edit/add: Vital Signs - 24 hr 08/24/24 09:19 Temperature 98 F Pulse Rate [Pulse Oximeter] 82 Respiratory Rate 16 Blood Pressure [Ri ght Upper Arm] 118/83 Pulse Oximetry 98 Oxygen Delivery Me thod Room Air Course Vital Signs Vital signs: Initial Vital Signs Temperature 98 F 08/24/24 09:19 Temperature Source Temporal Artery Scan 08/24/24 09:19 Pulse Rate 82 08/24/24 09:19 Respiratory Rate 16 08/24/24 09:19 Blood Pressure 118/83 08/24/24 09:19 Blood Pressure Mean 94 08/24/24 09:19 Blood Pressure Position Sitting 08/24/24 09:19 Pulse Oximetry 98 08/24/24 09:19 Oxygen Delivery Method Room Air 08/24/24 09:19 Vital Signs Temperature 98 F 08/24/24 09:19 Pulse Rate 82 08/24/24 09:19 Respiratory Rate 16 08/24/24 09:19 Blood Pressure 118/83 08/24/24 09:19 Pulse Oximetry 98 08/24/24 09:19 Oxygen Delivery Method Room Air 08/24/24 09:19 Temperature 98 F 08/24/24 09:19 Pulse Rate 82 08/24/24 09:19 Respiratory Rate 16 08/24/24 09:19 Blood Pressure 118/83 08/24/24 09:19 Pulse Oximetry 98 08/24/24 09:19 Oxygen Delivery Method Room Air 08/24/24 09:19 Medical Decision Making MDM Narrative Medical decision making narrative: This patient has a resistant urinary pathogen but states that she is feeling much better over these past couple days having received Rocephin and a prescription for Keflex. Rocephin is shown on the sensitivity report to be resistant and Keflex, though not listed in the sensitivity report, may also be resistant as other cephalosporins listed on the report are. The patient received an intramuscular injection of ertapenem 1 g which should give further benefit for her according to the sensitivity report. I also provided a prescription for Augmentin as ampicillin sulbactam shows good coverage for this pathogen. Hopefully Augmentin will help her as she has plans to travel out of the country. I encouraged her to take lots of fluids orally. Discharge Plan Discharge Clinical Impression: UTI (urinary tract infection) Patient Disposition: Home, Self-Care Condition: Stable Additional Instructions: Take medication as prescribed. Drink plenty of fluids. Follow up with MD return if worsening. Prescriptions: New amoxicillin-pot clavulanate 875-125 mg tablet 1 tab PO BID Qty: 20 0RF No Action alprazolam 0.5 mg tablet PO bupropion HCl 200 mg tablet sustained-release 12 hr 200 mg PO BID cephalexin 500 mg capsule 500 mg PO TID Qty: 21 0RF Follow Up/Referrals: Provider,Not a Local [Primary Care Provider] - Stand Alone Forms: [facility] Info Instructions
--- OUTSIDE RECORDS SUMMARY | 2024-08-24 09:56 | XMS_ITS | Clinical Summary ---
Author Organization [employer] [facility] Address [address] [place] [address] Care Team Providers Care Concrete Batch Plant Operator Name Role Phone Prachi Dunn MD Primary Care Provider [phone] Ethan Ortiz RN Unavailable Elzbieta Nicole RD [...] Department Care Team Description 08/22/2024 Nurse Triage [address] [address] Prachi Dunn MD Back Pain 07/22/2024 Refill [facility] [address] [place] [address] Rush Grant MD Refill Request 07/08/2024 4:10 PM FRONT EDGER Telemedicine [address] [address] Prachi Dunn MD Medication Management (tirzepatide) 07/08/2024 Travel 07/03/[address] [address] Prachi Dunn MD Refill Request (Alprazolam) 06/19/2024 11:15 AM FRONT EDGER Office Visit [facility] [address] [place] [address] Rush Grant MD Hospital F/U (Kidney Stone- no active pain currently ) 06/19/2024 Travel 06/18/2024 Telephone [facility] [address] [place] [address] Rush Grant MD Questions from [...] Heart Disease Father at 39, fi rst [place] at 36 Hypertension Father Obesity Father Hypertension [...] PM CDT Legal Sex Female 6:09 AM FRONT EDGER Gender Identity Female 03/25/2021 9:12 PM CDT [...] Comments Blood Pressure 128/89 06/19/2024 11:15 AM FRONT EDGER Pulse 71 06/19/2024 11:15 AM FRONT EDGER Temperature 37.3 C (99.2 F) 11/23/2020 11:57 AM CDT Respiratory Rate 18 11/23/2020 11:57 AM CDT Oxygen Saturation 99% 06/19/2024 11:15 AM FRONT EDGER Inhaled Oxygen Concentration - - Weight 90.3 kg (199 lb 1.6 oz) 06/19/2024 11:15 AM FRONT EDGER Height 165.1 cm (5' 5) 04/02/2024 4:27 [...] outside of [facility]), 12/03/2012 (Completed outside of [facility]), Additional history exists HIV for age 15-65 Completed 01/02/2009, 10/19/2006 Tdap Completed 05/20/2014, 10/19/2006 Pneumococcal series for age 6-49 Aged Out No longer eligible based on patient's age to complete this topic Procedures Procedure Name Priority Date/Time Associated Diagnosis Comments SCAN-COLONOSCOPY 06/16/2022 11:0 0 AM FRONT EDGER LIPID PANEL W REFLEX MEASURED LDL Routine 09/29/2021 8:32 AM CDT Obesity, Class II, BMI 35-39.9 RAPID HIV SCREEN Routine 01/02/2009 2:37 PM CDT Hx-Expos Hzrd Body Fluid LIGHT ARMORED VEHICLE OFFICER THIN PREP PAP SCREEN IMAGED Routine 01/02/2009 2:37 PM CDT Screening for Malignant Neoplasm of the Cervix from Last 3 Months or Most Recently Relevant to Health Maintenance Results * SCAN-COLONOSCOPY (06/16/2022 11:00 AM FRONT EDGER) Narrative Procedure Note Rank, Jessee Beverly MD - 06/16/2022 9:14 AM CST [facility] [address] [place] [address], [address], [place] [address] Patient Name: Madhavi Jackson Gender: Female Exam Date: 06/16/2022 Visit Number: [id number] Age: 46 Years Date of : 1975 Attending MD: Jessee Stanley MD Medical Record#: [id number] Procedure: Colonoscopy Indications: Family history of colon cancer in patient's multiplerelatives. Age diagnosed: 50-59. Referring MD: Prachi Dunn MD Primary MD: Prachi Dunn MD Medications: Admitting Medications: 0.9% Normal Saline at [facility] Intra Procedure Medications: Patient received monitored [...] signed by: Juan Argueta MD Interpreted at [facility] Digestive [facility], [address] [place], [place] [id number] Orders Instruction(s)/Education: Instruction/Education Timeframe Assessment Colon Cancer [...] - 199 mg/dL 09/29/2021 4:31 PM CDT [facility] Target Data LABORATORY-[facility] TRAL LABORATORY TRIGLYCERIDES 116 <150 mg/dL 09/29/2021 4:31 PM CDT [facility] HDL CHOLESTEROL 76 >40 mg/dL 4:31 PM CDT [facility] LABOR[facility]ORY NON-HDL CHOLESTEROL 209(H) <145 mg/dl 09/29/2021 4:31 PM CDT [facility] TR[facility] LABORATORY CHOL/HDL RATIO 3.75 <4.50 09/29/2021 4:31 PM CDT [facility] TR[facility] LABORATORY LDL CHOLESTEROL 186(H) <=130 mg/dL 09/29/2021 4:31 PM CDT [facility] VLDL CHOLESTEROL 23 <=30 mg/dL 09/29/2021 4:31 PM CDT [facility] TR[facility] LABORATORY PROVIDER ORDERED STATUS RANDOM 09/29/2021 4:31 PM CDT [facility] Blood BLOOD SPECIMEN / Unknown Venipuncture / Unknown 09/29/2021 8:32 AM CDT 09/29/2021 8:32 AM CDT us Yamile Saez NP CHEMISTRY Final Result [facility] [address] [place] [address], [place] * LIGHT ARMORED VEHICLE OFFICER THIN PREP PAP SCREEN IMAGED (01/02/2009 2:37 PM CDT) CYTOLOGY CYTOPATHOLOGY REPORT [facility] Status: Final Status [id number] CLINICAL INFORMATION Last Date of LMP :12/24/2008 Last Pap Date :12/2007 Last Pap Result :NIL ABN Sizerock/Bx Past 5 YRS :None Hormone Usage :BCP/OCP/Patch/Rin g Menstrual Status :Regular Periods Sizerock/Bx done today :No Additional :None given Information [...] malignant lesions. COLLECTED:01/02/09 ACCESSIONED: 01/05/09 SIGNED: 01/13/09 [facility] PAP [place] CODE NIL [facility] Cervical/Vaginal (Cervical/Vagina l) 01/02/2009 2:37 PM CDT 01/02/2009 2:26 PM CDT Esperanza Olvera MD PATHOLOGY/CYTOLOGY Final Result [facility] [place]NAL ZIP [address] [address] * RAPID HIV SCREEN (01/02/2009 2:37 PM CDT) RAPID HIV SCREEN Non-reacti ve [facility] Blood specimen (specimen) BLOOD SPECIMEN / Unknown 01/02/2009 2:37 PM CDT 01/02/2009 2:26 PM CDT Esperanza Olvera MD CHEMISTRY Final Result Performing Organization Address City/[facility]/ZIP Co de Phone Number [facility] [address], [address] [place] [address] from Last 3 Months or Most Recently Relevant to Health Maintenance Insurance [facility] [employer] Care Teams Concrete Batch Plant Operator Relationship Specialty Start Date End Date Parchi Dunn MD [address] [place] [address] PCP - General Internal Medicine 05/13/15 Ethan Ortiz, RN [address] [place], [place] [id number] Registered Nurse Registered Nurse 09/28/[address] [place] [address] Registered Dietitian Care Director Rn 09/28/21
--- OUTSIDE RECORDS SUMMARY | 2024-08-24 09:56 | XMS_ITS | Encounter Summary ---
Author Organization [facility] Address [address] [place] [address]. [place] [address] Care Team Providers Care Welding Equipment Repairer Name Role Phone Prachi Dunn MD Primary Care Provider Dayanna Quiñones MD Unavailable [phone] Catina Vargas GC Unavailable Encounter Details Date Type Department Care Team (Late st Contact Info) Description 05/11/2021 [facility] [address] [place] [address] Catina Vargas GC [address] [place] [address] Social History Tobacco Use Types Packs/Day Years Used Date Smoking Tobacco: Former Cigarettes Smokeless Tobacco: Never Alcohol Use Standard Drinks/Week Comments Yes 1 (1 standard drink = 0.6 oz pur e alcohol) occasionally Comments No Sex and Gender Information Value Date Recorded Sex Assigned at Not on file Legal Sex Female 8:47 AM CDT Gender Identity Female 04/19/2021 3:27 PM MACHINE STONECUTTER Sexual Orientation Straight 04/19/2021 3: 27 PM MACHINE STONECUTTER COVID-19 Exposure Response Date Recorded In the last month, have you been in contact with someone who was confirmed or suspected to have Coronavirus / COVID-19? No / Unsure 04/20/2021 10:13 AM MACHINE STONECUTTER documented as of this encounter Plan of Treatment Not on file documented as of this encounter Visit Diagnoses Not on filedocumented in this encounter Care Teams Welding Equipment Repairer Relationship Specialty Start Date End Date Prachi Dunn MD PCP - General Internal Medicine 02/26/21 Dayanna Quiñones MD [address] [facility] [address] [place] [address] Assigned Surgical Provider 03/14/21 Catina Vargas GC [address] [id number] Assigned OBGYN Provider 05/16/21 documented as of this encounter
--- OUTSIDE RECORDS SUMMARY | 2024-08-24 09:56 | XMS_ITS | Clinical Summary ---
Author Organization [facility] Address [address] [place] [address] Support Name Relationship Address Phone Jovani Jackson Emergency Contact Unknown [phone] Pt 03/17 Declined Emergency Contact Unknown Unava ilable Care Team Providers Care Manager Mobile Name Role Phone Md ZULAY Kaufman Primary Care Provider [phone] Source Comments You are receiving this document as you are listed as the primary care provider,follow-up provider, or the patient has been referred to you for consultation.This is in compliance with the Medicare and[facility] EHR Incentive Program,which states Providers who transition their patient to another setting of careor provider of care or refers their patient to another provider of care shouldprovide summary care record for each transition of care or referral. [facility] Allergies No known active allergies Medications [...] tablet TK 1 T PO HS PRF PSYCH TECH 1 12/28/2016 Active traZODone (DESYREL) 50 MG [...] this topic Insurance BCBS OUT OF STATE [facility] Care Teams Manager Mobile Relationship Specialty Start Date End Date Md Shae, [place] [address] PCP - General 09/05/10
--- OUTSIDE RECORDS SUMMARY | 2024-08-24 09:56 | XMS_ITS | Clinical Summary ---
Author Organization [facility] Address [address] [place] [address] Care Team Providers Care Automatic Outsole Cutter Name Role Phone Prachi Dunn MD Primary Care Provider [phone] Allergies Active Allergy Reactions Criticality Noted Date [...] Gender Identity Female 04/19/2021 3:27 PM MANAGER [employer] Sexual Orientation Straight 04/19/2021 3: 27 PM MANAGER [employer] SAL[employer] Last Filed Vital Signs Vital Sign Reading [...] this topic Medical Devices Implanted Type Area Pitch Filler Device Identifier Shelf Expiration Date Model / Serial / Lot Tissue Diamond Cleaver Natrelle 133s Smooth 650ml [id number] - [id number] Implanted:Qt y: 1 on 04/05/2021 by Warner Talamantes MD at [facility] Breast Implant/Tis satya Diamond Cleaver Right: Breast [employer] [id number] 09/23/2025 133S-FX-1 4-T / [id number] / Tissue Diamond Cleaver Natrelle 133s Smooth 650ml [id number] - [id number] Implanted:Qt y: 1 on 04/05/2021 by Warner Talamantes MD at [facility] Breast Implant/Tis satya Diamond Cleaver Left: Breast [employer] [id number] 08/16/2025 133S-FX-1 4-T / [id number] / Procedures Procedure Name Priority Date/Time Associated [...] Advance Directives For more information, please contact: [phone] * Full Code (Latest Code Status on File) Date Activated Date Inactivated Comments 04/05/2021 5:34 PM 04/06/2021 6:24 PM All basic an d advanced life-sustaining interventions are performed as appropriate Question Answer Comments Code status determined by: AD/POLST (patient dec ision maker unavailable) Care Teams Automatic Outsole Cutter Relationship Specialty Start Date End Date Prachi Dunn MD PCP - General Internal Medicine 02/26/21
[2024-08-24] MEDS: ERTAPENEM 1 GM inj IM (10:10)
== END 2024-08-24 10:18 | disposition home or self-care (01) ==
LOC: ED 09:54
PROVIDERS: Emergency Provider Emergency Medicine Emergency Medical Services; PCP Internal Medicine
DX: N39.0 Urinary tract infection, site not specified (principal)
CPT/HCPCS: 96372; 99284; J1335

== ENCOUNTER 2025-02-28 11:32 | Outpatient (CLI) | payer OTHER, SELFPAY | END 2025-02-28 11:33 | disposition home or self-care (01) | LOC: NFLDUCREF 11:33 | PROVIDERS: PCP Internal Medicine; Visit Provider Physician Assistant | DX: R35.0 Frequency of micturition (principal); N39.0 Urinary tract infection, site not specified | CPT/HCPCS: 87086 ==